=== PATIENT | male | born 2000 | race African-American/Black ===

== ENCOUNTER 2022-03-19 05:53 | Emergency (ER) | payer OTHER ==
[~2022-03-19] VITALS: Ht 167.6 cm; Wt 70.0 kg
[2022-03-19 06:34] VITALS: BP 147/97
[2022-03-19] MEDS ORDERED: TOPUD PO (08:06)
== END 2022-03-19 09:18 | disposition home or self-care (01) ==
LOC: ER 05:53
DX: S00.33XA Contusion of nose, initial encounter (principal); X58.XXXA Exposure to other specified factors, initial encounter; Y93.67 Activity, basketball; Y92.9 Unspecified place or not applicable
CPT/HCPCS: 70486; 99284